=== PATIENT | male | born 1955 | race Caucasian/White ===

== ENCOUNTER 2019-06-08 08:56 | Emergency (ER) | payer MEDICARE ==
[~2019-06-08] VITALS: Ht 160 cm; Wt 86.5 kg
[~2019-06-08 08:56] MED LIST: CLIN300C10 PO; FURO-109 PO; IBUP800T48 PO
[2019-06-08 09:02] VITALS: Ht 160 cm; Wt 86.5 kg
[2019-06-08] MEDS ORDERED: CLINDAMYCIN 900 MG (PMX) 50 ML IVPB STA (10:10)
[2019-06-08] MEDS ORDERED: VANCOMYCIN 1 GM (PMX) 250 ML IVPB STA (10:10)
[2019-06-08] MEDS ORDERED: KETOROLAC 15 MG INJ IV STA (10:10)
[2019-06-08] MEDS ORDERED: SODIUM CHLORIDE 0.9% 1L BAG IV* STA (10:10)
[2019-06-08] MEDS ORDERED: PIPER-TAZO 3.375 GM IV (PMX) 100 ML IVPB STA (10:10)
[2019-06-08] MEDS ORDERED: ACETAMINOPHEN 500 MG TAB PO STA (10:10)
[2019-06-08 13:56] VITALS: BP 120/77; PULSE 83; RESP 18
== END 2019-06-08 14:00 | disposition home or self-care (01) ==
LOC: E/R 08:56
DX: L03.115 Cellulitis of right lower limb (principal); R65.10 Systemic inflammatory response syndrome (SIRS) of non-infectious origin without acute organ dysfunction; I10 Essential (primary) hypertension; F17.210 Nicotine dependence, cigarettes, uncomplicated
CPT/HCPCS: 36415; 80053; 83605; 85025; 87040; 93005; 96365; 96366; 96367; 96375; 99284; J1885; J2543; J3370; J7030

== ENCOUNTER 2019-06-12 18:37 | Emergency (ER) | payer MEDICARE ==
[~2019-06-12] VITALS: Ht 162.6 cm; Wt 85.0 kg
[2019-06-12 18:44] VITALS: BP 131/75; PULSE 68; RESP 16; Ht 162.6 cm; Wt 85.0 kg
== END 2019-06-12 19:12 | disposition home or self-care (01) ==
LOC: E/R 18:37
DX: L03.115 Cellulitis of right lower limb (principal)
CPT/HCPCS: 99283